=== PATIENT | female | born 1970 | race Caucasian/White ===

== ENCOUNTER → 2016-04-07 | Outpatient (CLI) | payer BC ==
[~2016-04-07] MED LIST: ATENOLOL25 MG PO; BUPROPION HCL300 MG PO; CRESTOR10 M1 PO; HYDR25T; HYDROCODONE BIT1 T11 PO; LOVASTATIN10 MG PO; MEDROL DOSEPAK4 MG PO; METFORMIN1000 MG PO; Orphenadrine C100 MG PO
[2016-04-07 10:34] LABS: BILIRUBIN NEGATIVE (NEGATIVE); BLOOD NEGATIVE (NEGATIVE); CLARITY SL CLOUDY (CLEAR); COLOR YELLOW (YELLOW); GLUCOSE TRACE (NEGATIVE); KETONE NEGATIVE (NEGATIVE); LEUKO ESTERASE NEGATIVE (NEGATIVE); NITRITE NEGATIVE (NEGATIVE); PH 5.5 (5.0-9.0); PROTEIN NEGATIVE (NEGATIVE); UROBILINOGEN 0.2 E.U./dl (0.2-1.0)
[2016-04-07 11:30] LABS: BACTERIA 1+; EPITHELIAL CELLS 15-20; WBC 0-2 wbc/hpf (0-5)
== END ==
LOC: LAB 10:03
PROVIDERS: Nurse Practitioner Family
DX: D72.829 Elevated white blood cell count, unspecified (principal); J00 Acute nasopharyngitis [common cold]; R05 Cough; R09.89 Other specified symptoms and signs involving the circulatory and respiratory systems

== ENCOUNTER → 2019-04-29 | Outpatient (CLI) | payer BC | END | disposition home or self-care (01) | LOC: MRI 13:54 | DX: M25.512 Pain in left shoulder (principal); M25.612 Stiffness of left shoulder, not elsewhere classified; R29.898 Other symptoms and signs involving the musculoskeletal system; W19.XXXS Unspecified fall, sequela ==

== ENCOUNTER 2020-08-05 12:15 | Emergency (ER) | payer OTHER, BC ==
[2020-08-05 12:21] VITALS: BP 182/100
== END 2020-08-05 14:14 | disposition home or self-care (01) ==
LOC: ED 12:15
DX: S61.214A Laceration without foreign body of right ring finger without damage to nail, initial encounter (principal); Z79.899 Other long term (current) drug therapy; Z90.49 Acquired absence of other specified parts of digestive tract; Z90.89 Acquired absence of other organs; W26.8XXA Contact with other sharp object(s), not elsewhere classified, initial encounter; Y93.89 Activity, other specified; Y92.89 Other specified places as the place of occurrence of the external cause; Y99.0 Civilian activity done for income or pay